=== PATIENT | female | born 1975 | race Caucasian/White ===

== ENCOUNTER 2020-11-13 02:00 | Outpatient (CLI) | payer BC, SELFPAY ==
--- NOTE | 2020-11-13 06:45 | DI.MAMMO_ITS ---
Exam(s) MAMMO SCREENING EXAM: MAMMO SCREENING CLINICAL HISTORY: screening,Z12.39 TECHNIQUE: Mammograms were interpreted according to the usual protocol including computer analysis w [email or web address] CAD system, tomosynthesis and C-view imaging. COMPARISON: FINDINGS: The breasts are of moderate density with fairly symmetrical distribution of fibroglandular tissue. N o dominant mass or clumped microcalcification is identified in either breast. There is an apparent i ntramammary lymph node seen in the upper outer quadrant of the right breast. On the CC view of the left breast, there is somewhat elongated focal radiodensity projected in the po sterior central portion of the breast. Mass not excluded, spot compression view and breast ultrasoun d recommended for further evaluation. No other significant findings. IMPRESSION: Additional mammographic views of the left breast requested as described above along with left breast ultrasound. BI-RADS Category 0 - Assessment Incomplete: Need additional imaging evaluation Breast Density - Category B - Scattered areas of fibroglandular density
== END 2020-11-13 02:20 ==
PROVIDERS: Visit Provider Nurse Practitioner Women's Health
DX: Z12.31 Encounter for screening mammogram for malignant neoplasm of breast (principal); R92.8 Other abnormal and inconclusive findings on diagnostic imaging of breast
CPT/HCPCS: 77063; 77067